=== PATIENT | male | born 1960 | race Hispanic/Latino ===

== ENCOUNTER 2017-09-05 08:40 | Day surgery (SDC) | payer BC ==
[2017-09-05 09:25] LABS: Eosinophils % (Auto) 6.4 % (0.0-4.3); Hematocrit 40.3 % (35.5-45.6); Hemoglobin 13.9 gm/dl (11.8-15.2); Mean Corpuscular HGB Conc 34 % (32-34); Mean Corpuscular Hemoglobin 33 pg (28-32); Mean Corpuscular Volume 97 fl (84-94); Red Blood Count 4.18 M/mm3 (3.65-5.03); Red Cell Distribution Width 15.3 % (13.2-15.2); White Blood Count 3.3 K/mm3 (4.5-11.0)
[2017-09-05 09:32] LABS: Platelet Count 60 K/mm3 (140-440)
[2017-09-05 09:44] LABS: INR 1.27 (0.87-1.13)
[2017-09-05 09:45] LABS: Partial Thromboplastin Time 36.1 Sec. (24.2-36.6)
[2017-09-05 09:46] VITALS: BP 132/80
--- NOTE | 2017-09-05 12:11 | Ultrasound Report ---
ULTRASOUND ABDOMEN LIMITED/ASCITES SCAN INDICATION: Ascites, for paracentesis. COMPARISON: 08/24/2017 ultrasound. FINDINGS: Sonographic imaging of all 4 abdominal quadrants demonstrates a small amount of ascites, most noted very low in the right lower quadrant near the groin/inguinal region, felt not safely amenable for paracentesis. CONCLUSION: Small amount of ascites again identified, as described. Paracentesis not performed. I phoned the above results to Dr. Henry, 12 PM, 09/05/2017. Thank you for the opportunity to participate in this patient's care.
[2017-09-05 12:27] LABS: Anion Gap 13 mmol/L; BUN/Creatinine Ratio 24; Blood Urea Nitrogen 12 mg/dL (9-20); Calcium 8.6 mg/dL (8.4-10.2); Carbon Dioxide 26 mmol/L (22-30); Chloride 100.6 mmol/L (98-107); Glucose 116 mg/dL (75-100); Potassium 4.2 mmol/L (3.6-5.0); Sodium 135 mmol/L (137-145)
--- NOTE | 2017-09-05 15:00 | Cat Scan Report ---
CT of the abdomen and pelvis with oral but without IV contrast. History: Abnormal liver function tests. Findings: The liver is decreased in size with a markedly nodular contour. No definite focal hepatic abnormalities are seen although evaluation is limited by the absence of intravenous contrast. There is severe splenomegaly with moderate ascites. The gallbladder is markedly distended with at least one calcified gallstone. The wall of gallbladder is not thickened. Splenic varices are suspected. The pancreas is somewhat atrophic but otherwise unremarkable. The kidneys are normal in size and configuration with no evidence of mass or hydronephrosis. There is generalized mesenteric edema in the upper abdomen. Impression: 1. Cirrhosis with evidence of portal hypertension and probable varices. Moderate ascites is present. 2. Cholelithiasis.
== END 2017-09-05 14:41 | disposition home or self-care (01) ==
LOC: CATHLABREC 08:40 → EDSTATUS 09:00 → CATHLABREC 14:41
PROVIDERS: ATTEND Nurse Practitioner Adult Health
DX: R18.8 Other ascites (principal); R16.1 Splenomegaly, not elsewhere classified; K86.89 Other specified diseases of pancreas; K74.69 Other cirrhosis of liver; K76.6 Portal hypertension; K80.20 Calculus of gallbladder without cholecystitis without obstruction; Z53.8 Procedure and treatment not carried out for other reasons
CPT/HCPCS: 36415; 49083; 74177; 76705; 80048; 85025; 85610; 85730; Q9967

== ENCOUNTER 2017-11-26 11:47 | Day surgery (SDC) | payer BC ==
[2017-11-26] MEDS ORDERED: NACL 0.9% 1000 ML 1,000 ML IV SCH (13:00)
--- NOTE | 2017-11-26 16:10 | Anesthesia Consultation ---
Anesthesia Consult and Med Hx Date of service: 11/26/17 - Airway Anesthetic Teeth Evaluation: Poor ROM Head & Neck: Adequate Mental/Hyoid Distance: Adequate Mallampati Class: Class II Intubation Access Assessment: Probably Good - Pre-Operative Health Status ASA Pre-Surgery Classification: ASA3 Proposed Anesthetic Plan: General - Pulmonary Hx Smoking: Yes COPD: Yes Hx Pneumonia: Yes Hx Sleep Apnea: Yes - Cardiovascular System Hx Hypertension: Yes - Central Nervous System Hx Psychiatric Problems: Yes - Endocrine Hx Liver Disease: Yes (elevated enzymes) Hx Non-Insulin Dependent Diabetes: Yes - Other Systems Hx Cancer: No - Additional Comments Anesthesia Medical History Comments: NAC-remote history
--- NOTE | 2017-11-26 16:11 | Anesthesia Day of Surgery ---
Anesthesia Day of Surgery - Day of Surgery Patient Examined: Yes Patient H&P Reviewed: Yes Patient is NPO: Yes
[2017-11-26] MEDS ORDERED: DIPRIVAN 10 MG/ML IV ONE (16:12)
[2017-11-26] MEDS ORDERED: WATER FOR IRRIG STERILE IR ONE (16:22)
[2017-11-26 17:15] VITALS: BP 166/79
--- NOTE | 2017-11-26 17:35 | Operative Report ---
Operative Report Operative Report: Date of procedure: 11/26/2017 Procedure: Esophagogastroduodenoscopy with multiple mucosal biopsies Attending physician: Brian Nguyen MD Care Associate: Brian Nguyen MD Indication: Patient is a 57-year-old male who presented history of severe epigastric pain and heartburn and indigestion nausea vomiting and anorexia and also any satiety. Patient also had right upper quadrant abdominal pain. An upper endoscopy is now done to assess patient so that treatment may be directed based on the findings. Consent: Informed consent was obtained after advising the patient and family regarding nature of this procedure, its indications, potential benefits as well as possible complications including but not limited to bleeding perforation and adverse reaction to medication, infection as well as other cardiopulmonary complications. An informed written and verbal consent was then obtained after due opportunity was provided for questions and answers. Monitoring: Patient was monitored continuously with pulse oximetry and electrocardiographic recordings as well as blood pressure recordings. Vital signs remained stable throughout this procedure with no untoward events. Preoperative assessment: Patient was assessed immediately prior to this procedure for capacity to tolerate monitored anesthesia care and moderate sedation as well as general anesthesia. Patient's ASA classification is 2, Mallampati class is 2, Hyomental distance is 3. Instrument: [employer] video endoscope. Medications: Propofol, given intravenously in divided doses. For details please refer to anesthesia records. Description of procedure: Patient was placed in the left lateral decubitus position after achieving sedation, the endoscope was introduced into the esophagus under direct vision. It was then advanced beyond the esophagus into the stomach and then beyond the stomach into the duodenum and to the second portion of the duodenum. It was subsequently withdrawn with careful inspection of all mucosal surfaces with the following findings. Findings: Patient had irregular Z line with Mild erosive esophagitis involving this esophagus. There was marked portal hypertensive gastropathy involving the gastric cardia and gastric body. There were multiple gastric ulcers in all 7 ulcers were seen predominantly in the gastric antrum. The ulcers varied in size from 0.5 x 0.5 to about 1.5 x 2.5 1.5 x 1 cm. All ulcers were clean based. Several biopsies obtained from the gastric antrum for histopathology. In the duodenal bulb, patient had 2 large ulcers with deformity of the duodenal bulb. The ulcer was mucosal changes suggestive severe duodenitis. The endoscope was then removed after the examination. Impression: Irregular Z line Erosive esophagitis Severe gastritis Portal hypertensive gastropathy. Multiple gastric ulcers Multiple duodenal ulcers Severe duodenitis. Plan: Continue treatment proton pump inhibitors for 8-12 weeks. Patient must have a repeat endoscopy in about 8 weeks to check for healing of the ulcers. follow pathology report from the gastric antral biopsies. Maintain antireflux measures. Check Helicobacter pylori status from the biopsies and treat accordingly. Patient to avoid all non-steroidals. He in particular had been on meloxicam.
--- NOTE | 2017-11-26 17:35 | Discharge Summary ---
Short Stay Discharge Plan Activity: advance as tolerated Weight Bearing Status: Weight Bear as Tolerated Diet: regular Additional Instructions: Post Sedation D/C Instructions When you return home you may resume your regular diet unless otherwise directed. -Go directly home from the hospital and rest quietly. You may resume normal activities tomorrow. -Do NOT drive, return to work, operate any machinery or make any important personal or business decisions today. -Do NOT drink any alcohol or take nerve or sleeping drugs. They add to the effects of the medicine still present in your body. Follow up with: BORA CONCEPCION MD [Primary Care Provider] - 7 Days
== END 2017-11-26 11:48 | disposition home or self-care (01) ==
LOC: GIO 11:47
PROVIDERS: ATTEND Internal Medicine Gastroenterology
DX: K26.9 Duodenal ulcer, unspecified as acute or chronic, without hemorrhage or perforation (principal); K25.9 Gastric ulcer, unspecified as acute or chronic, without hemorrhage or perforation; K21.0 Gastro-esophageal reflux disease with esophagitis; E11.9 Type 2 diabetes mellitus without complications; I10 Essential (primary) hypertension; J44.9 Chronic obstructive pulmonary disease, unspecified; G47.30 Sleep apnea, unspecified; F17.200 Nicotine dependence, unspecified, uncomplicated; Z98.890 Other specified postprocedural states; Z79.899 Other long term (current) drug therapy
CPT/HCPCS: 43239; 82962; 88305; 88342; J2704; J7030

== ENCOUNTER 2018-03-23 11:30 | Emergency (ER) | payer BC ==
[2018-03-23 12:41] LABS: Hematocrit 31.2 % (35.5-45.6); Hemoglobin 10.7 gm/dl (11.8-15.2); Mean Corpuscular HGB Conc 34 % (32-34); Mean Corpuscular Hemoglobin 34 pg (28-32); Mean Corpuscular Volume 99 fl (84-94); Red Blood Count 3.15 M/mm3 (3.65-5.03); Red Cell Distribution Width 16.1 % (13.2-15.2)
--- NOTE | 2018-03-23 12:45 | XRay Report ---
Chest 2 views: History: Shortness of breath. Findings: Heart size is upper limit of normal. Trachea is midline. Evidence of mild COPD. Right lower lobe haziness with blurring of the diaphragm is probably related to pleurodiaphragmatic adhesions with probably pleural effusion. Underlying pneumonitis if present cannot be excluded. Impression: Findings as detailed above. If clinically indicated CT scan may be advised.
[2018-03-23 12:50] LABS: Platelet Count 61 K/mm3 (140-440)
[2018-03-23 13:02] LABS: Alanine Aminotransferase 22 units/L (7-56); Albumin 2.9 g/dL (3.9-5); BUN/Creatinine Ratio 17; Blood Urea Nitrogen 10 mg/dL (9-20); Calcium 8.2 mg/dL (8.4-10.2); Hemolysis Index 60
[2018-03-23 13:52] LABS: Myelocytes # (Manual) 0.1 K/mm3; Platelet Estimate Appears Decreased; Total Cells Counted 100
[2018-03-23 15:43] VITALS: BP 127/78
--- NOTE | 2018-03-23 17:15 | Emergency Department Report ---
HPI - General Chief Complaint: Dyspnea/Respdistress Time Seen by Provider: 03/23/18 16:56 - HPI HPI: Room 7 The patient is a 57-year-old male presenting with a chief complaint of bilateral lower extremity edema and occasional shortness of breath. The patient states he had some swelling in his bilateral lower extremities in the past over the past 2 days swelling has increased dramatically. Patient states she occasionally has shortness of breath. Patient denies any history of fever or chest pain. Patient denies nausea or vomiting. The patient's states she's been compliant with his diuretics. Location: [See above] Duration: [See above] Quality: Swelling, shortness of breath Severity: Moderate Modifying factors: [see above] Context: [see above] Mode of transportation: [not driving] ED Past Medical Hx - Past Medical History Hx Hypertension: Yes Hx Diabetes: Yes Hx Liver Disease: Yes (elevated enzymes) Hx COPD: Yes - Surgical History Hx Appendectomy: Yes - Family History Family history: no significant - Social History Smoking Status: Current Every Day Smoker (2-3 cigarettes daily) Substance Use Type: None (denies illicit drug use), Alcohol (occasional) - Medications Home Medications: Home Medications Medication Instructions Recorded Confirmed Last Taken Type Carisoprodol 350 mg PO DAILY 09/05/17 11/26/17 09/04/17 History Lisinopril 2.5 mg PO DAILY 09/05/17 11/26/17 09/04/17 History Meloxicam 15 mg PO DAILY 09/05/17 11/26/17 09/04/17 History Simvastatin 20 mg PO QHS 09/05/17 11/26/17 11/25/17 History Spironolactone Tab [Aldactone Tab] 25 mg PO DAILY 09/05/17 11/26/17 09/04/17 History glipiZIDE [Glipizide ER] 10 mg PO DAILY 09/05/17 11/26/17 11/26/17 History ED Review of Systems ROS: Stated complaint: LEGS/FEET SWELLING Other details as noted in HPI Constitutional: denies: fever Eyes: denies: eye pain ENT: denies: throat pain Respiratory: shortness of breath Cardiovascular: denies: chest pain Gastrointestinal: denies: abdominal pain, nausea, vomiting Genitourinary: denies: dysuria Musculoskeletal: denies: back pain Neurological: denies: headache Physical Exam - Physical Exam Vital Signs: Vital Signs 03/23/18 03/23/18 03/23/18 12:08 15:41 15:43 Temperature 98.2 F 97.7 F Pulse Rate 88 104 H Respiratory 22 22 22 Rate Blood Pressure 122/62 Blood Pressure 127/78 [Right] O2 Sat by Pulse 95 100 100 Oximetry Physical Exam: GENERAL: The patient is well-developed well-nourished male sitting on stretcher not appearing to be in acute distress. [] HEENT: Normocephalic. Atraumatic. Extraocular motions are intact. Patient has moist mucous membranes. NECK: Supple. Trachea midline CHEST/LUNGS: Decreased breath sounds at the right base. There is no respiratory distress noted. HEART/CARDIOVASCULAR: Regular. There is no tachycardia. There is no gallop rub or murmur. ABDOMEN: Abdomen is soft, nontender. Patient has normal bowel sounds. There is ascites SKIN: There is no rash. There is 2-3+ bilateral lower extremity pitting edema to the knees. The feet are erythematous bilaterally. There is no diaphoresis. NEURO: The patient is awake, alert, and oriented. The patient is cooperative. The patient has no focal neurologic deficits. The patient has normal speech MUSCULOSKELETAL: There is no evidence of acute injury. ED Course Vital Signs 03/23/18 03/23/18 03/23/18 12:08 15:41 15:43 Temperature 98.2 F 97.7 F Pulse Rate 88 104 H Respiratory 22 22 22 Rate Blood Pressure 122/62 Blood Pressure 127/78 [Right] O2 Sat by Pulse 95 100 100 Oximetry ED Medical Decision Making - Lab Data Result diagrams: 03/23/18 12:24 03/23/18 12:24 Laboratory Tests 03/23/18 03/23/18 12:24 12:24 WBC 3.0 L RBC 3.15 L Hgb 10.7 L Hct 31.2 L MCV 99 H MCH 34 H MCHC 34 RDW 16.1 H Plt Count 61 L [place] % (Auto) Molding Utility Worker Add Manual Diff Complete Total Counted 100 Seg Neuts % (Manual) 71.0 H Band Neutrophils % 0 Lymphocytes % (Manual) 10.0 L Reactive Lymphs % (Man) 1.0 Monocytes % (Manual) 9.0 H Eosinophils % (Manual) 4.0 Basophils % (Manual) 1.0 Metamyelocytes % 0 Myelocytes % 4.0 Promyelocytes % 0 Blast Cells % 0 Nucleated RBC % Not Reportable Seg Neutrophils # Man 2.1 Band Neutrophils # 0.0 Lymphocytes # (Manual) 0.3 L Abs React Lymphs (Man) 0.0 Monocytes # (Manual) 0.3 Eosinophils # (Manual) 0.1 Basophils # (Manual) 0.0 Metamyelocytes # 0.0 Myelocytes # 0.1 Promyelocytes # 0.0 Blast Cells # 0.0 WBC Morphology Not Reportable Hypersegmented Neuts Not Reportable Hyposegmented Neuts Not Reportable Hypogranular Neuts Not Reportable Smudge Cells Not Reportable Toxic Granulation Not Reportable Toxic Vacuolation Not Reportable Dohle Bodies Not Reportable Pelger-Huet Anomaly Not Reportable Tresa Rods Not Reportable Platelet Estimate Appears decreased Clumped Platelets Not Reportable Plt Clumps, EDTA Not Reportable Large Platelets Not Reportable Giant Platelets Not Reportable Platelet Satelliting Not Reportable Plt Morphology Comment Not Reportable RBC Morphology Not Reportable Dimorphic RBCs Not Reportable Polychromasia Not Reportable Hypochromasia Not Reportable Poikilocytosis Not Reportable Anisocytosis Not Reportable Microcytosis Not Reportable Macrocytosis Not Reportable Spherocytes Not Reportable Pappenheimer Bodies Not Reportable Sickle Cells Not Reportable Target Cells Not Reportable Tear Drop Cells Not Reportable Ovalocytes Not Reportable Helmet Cells Not Reportable [place] Bodies Not Reportable [place] Rings Not Reportable Stella Cells Not Reportable Bite Cells Not Reportable Crenated Cell Not Reportable Elliptocytes Not Reportable Acanthocytes (Spur) Not Reportable Rouleaux Not Reportable Hemoglobin C Crystals Not Reportable Schistocytes Not Reportable Malaria parasites Not Reportable Dayron Bodies Not Reportable Hem Pathologist Commnt No Sodium 139 Potassium 4.0 Chloride 103.2 Carbon Dioxide 25 Anion Gap 15 BUN 10 Creatinine 0.6 L Estimated GFR > 60 BUN/Creatinine Ratio 17 Glucose 195 H Calcium 8.2 L Total Bilirubin 3.40 H AST 45 H ALT 22 Alkaline Phosphatase 86 Total Protein 6.7 Albumin 2.9 L Albumin/Globulin Ratio 0.8 - Radiology Data Radiology results: report reviewed (chest x-ray), image reviewed (chest x-ray) interpreted by me: Chest x-ray-right sided pleural effusion. No pneumothorax - Medical Decision Making I discussed with the patient and patient's at bedside my concern for today' s findings and my recommendation for admission to the hospital. Patient verbalized understanding of the risks of increased morbidity and/or mortality should leave he leave the hospital AGAINST MEDICAL ADVICE. at bedside and attempted to convince the patient to stay but he refuses - Differential Diagnosis cirrhosis, ascites, peripheral edema, pleural effusion Critical care attestation.: If time is entered above; I have spent that time in minutes in the direct care of this critically ill patient, excluding procedure time. ED Disposition Clinical Impression: Peripheral edema, Pleural effusion, right, Pancytopenia Disposition: DC-07 LEFT AGAINST MED ADVICE Is pt being admited?: No Does the pt Need Aspirin: No Condition: Undetermined Referrals: PEPITO HAY MD [Primary Care Provider] - 3-5 Days Time of Disposition: 17:15 (patient leaving AMA)
== END 2018-03-23 17:26 | disposition left against medical advice (07) ==
LOC: ED 11:30
DX: D61.818 Other pancytopenia (principal); J90 Pleural effusion, not elsewhere classified; R60.0 Localized edema; I10 Essential (primary) hypertension; E11.9 Type 2 diabetes mellitus without complications; J44.9 Chronic obstructive pulmonary disease, unspecified
CPT/HCPCS: 36415; 71046; 80053; 85007; 85025; 93005; 93010